=== PATIENT | male | born 1945 | race Caucasian/White ===

== ENCOUNTER 2017-06-11 13:36 | Outpatient (CLI) | payer MEDICARE ==
--- OUTSIDE RECORDS SUMMARY | 2017-06-11 13:38 | XMS | Clinical Summary ---
:1945 Author Organization [facility] Address [address] [place] [address] Phone Care Team Providers Name Role Phone , Primary Care Provider Unavailable Allergies Not on File Current Medications Not on file Active Problems Not on file Social History Tobacco Use Types Packs/Day Years Used Date Never Assessed Sex Assigned at Date Recorded Not on file Last Filed Vital Signs Not on file Plan of Treatment Not on file Results Not on filefrom Last 3 Months
[2017-06-11] MEDS ORDERED: Gadobenate Dimeglumine 529 MG/1 ML (20ML VIAL) ONE (14:21)
--- NOTE | 2017-06-11 16:16 | MRI ---
MRI OF THE PELVIS WITHOUT AND WITH CONTRAST: Comparison: None. History: Prostate cancer. Technique: Multiplanar, multisequence MR images are obtained of the prostate/pelvis without and with IV contrast. FINDINGS: There is a small amount of T1 signal in the right posterolateral aspect of the prostate along the mi dportion of the gland and extending to the apex. There is restricted effusion which is mildly hypoin tense on the ADC map in the right posterolateral aspect of the prostate measuring 1.2 cm in size. Th is corresponds to a wedge shaped area of low T2 signal in the peripheral zone. No other abnormal areas of signal are seen within the prostate. The region of abnormal restricted di ffusion and lower T2 signal also demonstrates enhancement which is similar to the rest of the prosta te. Seminal vesicles are unremarkable without evidence of involvement. Bilateral mid vascular bundles sh ow no evidence of involvement. The capsule of the prostate appears intact without obvious extracapsu lar distention. No pelvic adenopathy is seen. No osseous abnormality is present. There is a small 4 mm diverticulum along the right aspect of the urinary bladder. IMPRESSION: 1. PIRADS category 3 - intermediate. The presence of a clinically significant cancer is equivocal ba sed off findings on this MRI. There is no evidence of extraprostatic spread of malignancy. 2. Small right bladder diverticulum. POS: [facility]
== END 2017-06-11 13:37 | disposition home or self-care (01) ==
LOC: TBSIIMAG 13:36
PROVIDERS: ATTEND Radiology Radiation Oncology
DX: C61 Malignant neoplasm of prostate (principal)
CPT/HCPCS: 72197; A9579

== ENCOUNTER 2017-07-17 09:10 | Outpatient (CLI) | payer MEDICARE ==
--- NOTE | 2017-07-17 12:29 | CT ---
CT THORAX WITH IV CONTRAST: Date: 07/17/17 HISTORY: left renal cancer. Patient has history of prior left nephrectomy. Patient also received radiation 1 week ago secondary to prostate cancer. COMPARISON: CTA chest and abdomen on 03/13/17. FINDINGS: The lungs are clear without evidence of a pulmonary nodule, mass, or pleural effusion. There is no evidence of axillary, hilar, or mediastinal lymphadenopathy. Mediastinal structures have a normal CT appearance. Imaging through the upper abdomen demonstrates evidence of left postsurgical change related to left nephrectomy incompletely imaged or evaluated. Post cholecystectomy changes are noted. There is evidence of a duodenal diverticulum again present i nvolving the second portion of the duodenum. Osseous structures demonstrate no lytic or sclerotic osseous lesion. No enlarged lymph nodes are see n within the upper abdomen. There is colonic diverticulosis involving the hepatic flexure. IMPRESSION: 1. No acute findings are seen in the chest. 2. No pulmonary nodule is seen, and there is no evidence of lymphadenopathy. 3. Postsurgical changes related to left nephrectomy, incompletely imaged on this exam. 4. Post cholecystectomy changes. POS: [facility]
[2017-07-17] MEDS ORDERED: Iopamidol 370 76% 100 ML VIAL ONE (16:15)
== END 2017-07-17 09:11 | disposition home or self-care (01) ==
LOC: CT 09:10
PROVIDERS: ATTEND Internal Medicine Hematology & Oncology
DX: C65.2 Malignant neoplasm of left renal pelvis (principal); Z90.5 Acquired absence of kidney; Z90.49 Acquired absence of other specified parts of digestive tract
CPT/HCPCS: 36415; 71260; 82565

== ENCOUNTER 2017-10-20 08:13 | Outpatient (CLI) | payer MEDICARE ==
--- NOTE | 2017-10-20 09:35 | CT ---
CT OF THE CHEST WITH CONTRAST: COMPARISON: 07/17/17. HISTORY: Malignant neoplasm of the kidney. TECHNIQUE: Multiple contiguous axial images were obtained in a CT of the chest with contrast. Coronal reformats were performed. FINDINGS: No pulmonary nodules are identified. No pneumothorax or pleural effusions are seen. The heart is normal in size without focal cardiac abnormality. No hilar or mediastinal lymphadenopat hy are present. N suspicious osseous lesions are identified. The chest wall soft tissues are unremarkable. The left kidney has been removed. The gallbladder has been removed. The other visualized subdiaphragmatic s tructures are unremarkable. IMPRESSION: No evidence of intrathoracic metastatic disease. POS: [facility]
[2017-10-20] MEDS ORDERED: Iopamidol 370 76% 100 ML VIAL ONE (13:40)
== END 2017-10-20 08:14 | disposition home or self-care (01) ==
LOC: CT 08:13
PROVIDERS: ATTEND Internal Medicine Hematology & Oncology
DX: C65.2 Malignant neoplasm of left renal pelvis (principal)
CPT/HCPCS: 71260; 82565